=== PATIENT | male | born 1980 | race Caucasian/White ===

== ENCOUNTER 2019-02-22 07:07 | Emergency (ER) | payer OTHER ==
[2019-02-22] MEDS ORDERED: Ketorolac 60 MG/2 ML SDV IM ONE (07:32)
--- NOTE | 2019-02-22 07:34 | EDM.PDOC ---
ED HPI GENERAL MEDICAL PROBLEM - General Chief Complaint: Lower Extremity Injury/Pain Stated Complaint: LEFT FOOT INJURY Time Seen by Provider: 02/22/19 07:31 Source of Information: Reports: Patient, RN Notes Reviewed History Limitations: Reports: No Limitations - History of Present Illness INITIAL COMMENTS - FREE TEXT/NARRATIVE: 38-year-old gentleman presents to the emergency department today complaint of left ankle pain, he injured himself last night with a twisting injury he has difficulty walking on this ankle Left Ankle Pain Score (Numeric/FACES): 10 - Related Data Allergies Allergy/AdvReac Type Severity Reaction Status Date / Time Penicillins Allergy Other Verified 02/22/19 07:30 Home Meds: Home Meds NK [No Known Home Meds] 10/09/17 [History] Past Medical History Respiratory History: Reports: Sleep Apnea Musculoskeletal History: Reports: Fracture, Other (See Below) Other Musculoskeletal History: right shoudler pain Social & Family History - Tobacco Use Smoking Status *Q: Current Every Day Smoker Years of Tobacco use: 23 Packs/Tins Daily: 1 - Caffeine Use Caffeine Use: Reports: Energy Drinks - Recreational Drug Use Recreational Drug Use: No Review of Systems - Review of Systems Review Of Systems: See Below Musculoskeletal: Reports: Joint Pain (Left ankle pain) Skin: Reports: Other ( edema) ED EXAM, GENERAL - Physical Exam Exam: See Below Free Text/Narrative:: Examination of the left ankle I do appreciate some edema below the lateral malleolus he is tender to the tilt test drawer test is negative pedal pulses +2 there is tenderness to palpation around the lateral malleolus Course - Vital Signs Last Recorded V/S: Last Vital Signs Temp 97.5 F 02/22/19 07:20 Pulse 105 H 02/22/19 07:20 Resp 16 02/22/19 07:20 BP 117/73 02/22/19 07:20 Pulse Ox 92 L 02/22/19 07:20 - Orders/Labs/Meds Meds: Medications Discontinued Medications Generic Name Dose Route Start Last Admin Trade Name Freq PRN Reason Stop Dose Admin Ketorolac Tromethamine 60 mg 02/22/19 07:32 02/22/19 07:39 Toradol IM 02/22/19 07:33 60 mg ONETIME ONE Administration Departure - Departure Time of Disposition: 08:17 Disposition: Home, Self-Care 01 Condition: Fair Clinical Impression: Left ankle sprain Qualifiers: Encounter type: initial encounter Involved ligament of ankle: unspecified ligament Qualified Code(s): S93.402A - Sprain of unspecified ligament of left ankle, initial encounter - Discharge Information Referrals: PCP,None [Primary Care Provider] - Forms: ED Department Discharge Additional Instructions: Use ibuprofen for baseline pain control, for breakthrough pain use hydrocodone, Please followup with your primary care provider in 3-5 days if not better, please call return to the emergency department with worsening of symptoms. - Assessment/Plan Plan: Assessment Acuity = acute Site and laterality = left ankle sprain Etiology = secondary to twisting injury Manifestations = pain Location of injury = Home Lab values = x-ray reveals no acute fracture Plan He is placed in an air gel splint and crutches follow-up primary care 3-5 days if no improvement, prescription written for hydrocodone 5/325 one tab by mouth 3 times a day when necessary total #10 This note was dictated using [employer] voice recognition software please call with any questions on syntax or grammar.
--- NOTE | 2019-02-22 08:09 | CRLCR ---
INDICATION: Twisting injury. Pain. TECHNIQUE: Three views left. FINDINGS: Mild to moderate soft tissue swelling left ankle anteriorly and medially. No acute fracture or dislocation and left ankle. Left ankle otherwise unremarkable. Dictated by Avinash Dalal MD @ Feb 22 2019 8:07AM Signed by Dr. Avinash Dalal @ Feb 22 2019 8:07AM
== END 2019-02-22 08:39 | disposition home or self-care (01) ==
LOC: JP.ED 07:07
DX: S93.402A Sprain of unspecified ligament of left ankle, initial encounter (principal); F17.210 Nicotine dependence, cigarettes, uncomplicated; Z88.0 Allergy status to penicillin; X50.1XXA Overexertion from prolonged static or awkward postures, initial encounter
CPT/HCPCS: 73610; 96372; 99283; J1885

== ENCOUNTER 2024-07-05 10:30 | Emergency (ER) | payer OTHER ==
[2024-07-05 12:46] LABS: CORONAVIRUS COVID-19 NAA NEGATIVE (NEGATIVE); INFLUENZA A NAA NEGATIVE (NEGATIVE); INFLUENZA B NAA NEGATIVE (NEGATIVE); RESPIRATORY SYNCYTIAL VIR NAA NEGATIVE (NEGATIVE)
[2024-07-05 13:23] LABS: BASOPHILS ABSOLUTE AUTO 0.04 K/uL (0.00-0.10); BASOPHILS PERCENT AUTO 0.4 % (0.1-1.3); EOSINOPHILS ABSOLUTE AUTO 0.15 K/uL (0.00-0.40); EOSINOPHILS PERCENT AUTO 1.3 % (0.0-5.4); HEMATOCRIT 47.8 % (38.4-49.7); HEMOGLOBIN 15.9 g/dL (12.9-16.9); IMMATURE GRAN ABSOLUTE AUTO 0.04 K/uL (0.00-0.23); IMMATURE GRAN PERCENT AUTO 0.4 % (0.0-0.7); LYMPHOCYTES ABSOLUTE AUTO 2.72 K/uL (0.8-3.3); LYMPHOCYTES PERCENT AUTO 24.3 % (11.4-47.7); MEAN CORPUSCULAR HEMOGLOBIN 30.4 pg (31.6-35.5); MEAN CORPUSCULAR HGB CONC 33.3 g/dL (31.6-35.5); MEAN CORPUSCULAR VOLUME 91.4 fL (81.4-99.0); MONOCYTES ABSOLUTE AUTO 1.01 K/uL (0.20-0.90); NEUTROPHILS ABSOLUTE AUTO 7.24 K/uL (1.0-7.6); NEUTROPHILS PERCENT AUTO 64.6 % (40.0-78.1); PLATELET COUNT,PLT 335 K/uL (130-375); RED BLOOD CELL COUNT 5.23 M/uL (4.14-5.76); WHITE BLOOD CELL COUNT,WBC 11.2 K/uL (3.2-11.0)
== END 2024-07-05 13:38 | disposition home or self-care (01) ==
LOC: JP.ED 10:30
DX: J32.0 Chronic maxillary sinusitis (principal); H66.92 Otitis media, unspecified, left ear; Z79.899 Other long term (current) drug therapy; Z88.0 Allergy status to penicillin
CPT/HCPCS: 0241U; 36415; 85025; 99283; 99284

== ENCOUNTER 2025-03-05 08:27 | Day surgery (SDC) | payer OTHER ==
[~2025-03-05 08:27] MED LIST: Dexamethasone 4 MG/ML SDV ONE; Glycopyrrolate 0.2 MG/ML 5 ML MDV ONE; Ondansetron 4 MG/2 ML SDV ONE; Propofol 200 MG/20 ML SDV ONE; Succinylcholine 200 MG/10 ML MDV ONE; fentaNYL 250 MCG/5 ML SDV ONE
[2025-03-05 09:08] LABS: PLATELET COUNT,PLT 251.0 K/uL (130-375); RED BLOOD CELL COUNT 5.02 M/uL (4.14-5.76); WHITE BLOOD CELL COUNT,WBC 7.9 K/uL (3.2-11.0)
[2025-03-05] MEDS: Lactated Ringers 1,000 ML IV SCH (09:26)
[2025-03-05] MEDS: metroNIDAZOLE/Normal Saline 500 MG in Premix Bag 1 BAG IV ONE (09:28)
[2025-03-05 09:30] LABS: BLOOD UREA NITROGEN,BUN 21.0 mg/dL (7-18); CARBON DIOXIDE,CO2 26.0 mmol/L (21-32); CHLORIDE,CL 106.0 mmol/L (100-108); CREATININE 1.0 mg/dL (0.8-1.3); EST CRCL DRUG DOSING (CG) 98.35 mL/min; ESTIMATED GFR 96.0 mL/min (>60); GLUCOSE RANDOM 105.0 mg/dL (74-106); POTASSIUM,K 4.6 mmol/L (3.6-5.2); SODIUM,NA 138.0 mmol/L (140-148)
[2025-03-05] MEDS ORDERED: Ketorolac 30 MG/ML SDV ONE (10:54)
[2025-03-05] MEDS ORDERED: fentaNYL 100 MCG/2 ML SDV ONE (10:58)
[2025-03-05] MEDS: Acetaminophen/HYDROcodone 325-5 MG Tab PO ONE (14:26)
== END 2025-03-05 14:27 | disposition home or self-care (01) ==
LOC: JP.SDS 08:27
PROVIDERS: ATTEND Surgery
DX: K43.6 Other and unspecified ventral hernia with obstruction, without gangrene (principal); E66.813 Obesity, class 3; F17.200 Nicotine dependence, unspecified, uncomplicated; Z68.41 Body mass index [BMI] 40.0-44.9, adult
CPT/HCPCS: 36415; 49594; 74018; 80048; 85027; 94640; A9270; C1781; J0169; J0330; J0665; J0690; J1100; J1596; J1836; J1885; J1920; J2405; J2704; J2710; J2795; J3010; J7120; J7620; J3490